=== PATIENT | male | born 2000 | race Two or more races ===

== ENCOUNTER 2024-12-15 23:10 | Emergency (ER) | payer MEDICAID, OTHER ==
[~2024-12-15] VITALS: Ht 165.1 cm; Wt 96.5 kg
[2024-12-15 23:12] VITALS: BP 128/92; PULSE 93; RESP 16; TEMP 97.8; O2SAT 100
== END 2024-12-15 23:44 | disposition left against medical advice (07) ==
LOC: ER 23:10
DX: R51.9 Headache, unspecified (principal); Z53.21 Procedure and treatment not carried out due to patient leaving prior to being seen by health care provider